=== PATIENT | male | born 1945 | race Caucasian/White ===

== ENCOUNTER 2025-06-02 13:22 | Outpatient (REF) | payer MEDICARE, OTHER, SELFPAY ==
[2025-06-02 18:33] LABS: Alanine Aminotransferase 38 U/L (0-40); Aspartate Amino Transferase 48 U/L (5-37); Estimated Glomerular Filt Rate > 60; Uric Acid 5.1 mg/dL (3.4-7.0)
--- OUTSIDE RECORDS SUMMARY | 2025-06-02 22:05 | XMS_ITS | Clinical Summary ---
Author Organization [address] [place] [address] [place] [phone] Phone Care Team Providers Care Bridge Attacher Name Role Phone Juani Mendoza MD Primary Care Provider [phone] Allergies Active Allergy Reactions Criticality Noted Date Comments Other 12/31/2016 Seasonal Allergies Simvastatin Diarrhea High 10/13/2013 collagenous colitis Medications allopurinoL (ZYLOPRIM) 100 mg tablet Take 1 tablet (100 mg total) by mouth 1 (one) time each day. Taken with 300 mg to equal 400 mg [facility] fills Meds Active allopurinoL (ZYLOPRIM) 300 mg tablet Take 1 tablet (300 mg total) by mouth 1 (one) time each day. Taken with 100 mg to equal 400 mg [facility] fills Meds 07/25/19 24 Active blood-glucose meter misc E11.9 To check glucose once daily 02/13/20 22 Active clotrimazole-beta methasone (LOTRISONE) 1-0.05 % cream Apply sparingly to external affected area 2 times daily for 7-10 days. 07/09/19 20 Active medical supply, miscellaneous (MISCELLANEOUS MEDICAL SUPPLY MIS) CPAP Historical (HISTORICAL CPAP) Inhale into the lungs. [employer]-pressure 6-8 Active glucose blood test strip E11.9 To check glucose once daily 02/13/20 22 Active lancets lancets To check sugars twice daily 06/06/20 23 Active nitroglycerin (NITROSTAT) 0.[address] 1 tablet (0.4 mg total) under the tongue every 5 (five) minutes if needed for chest pain. Brendan Molina Cloth Examiner Hand fills meds Active atorvastatin (LIPITOR) 40 mg tabletIndications :Atherosclerotic heart disease of [place] coronary artery without angina pectoris,Pure hypercholesterole gracie, unspecified TAKE 1 TABLET BY MOUTH EVERY DAY 90 tablet 3 05/25/20 24 Active multivit with minerals/lutein (MULTIVITAMIN 50 PLUS ORAL) Take 1 tablet by mouth 1 (one) time each day. 06/07/[address] (ENTOCORT EC) 3 mg 24 hr capsuleIndication s:Bruising Take 3 capsules (9 mg total) by mouth 1 (one) time each day in the morning. 270 capsule 3 09/15/19 25 Active nystatin-triamcin olone (MYCOLOG II) cream APPLY TO AFFECTED AREA TWICE A DAY 30 g 5 10/06/19 25 Active metoprolol succinate (TOPROL-XL) 25 mg 24 hr tabletIndications :Coronary artery disease of [place] artery of [place] heart with stable angina pectoris (CMS/HCC V24),Paroxysmal atrial fibrillation (CMS/HCC V24, CMS/HCC V28) Take 1 tablet (25 mg total) by mouth 1 (one) time each day. Do not crush or chew. 90 each 3 11/06/19 25 026 Active fluticasone propionate (FLONASE) 50 mcg/actuation nasal spray USE 1 SPRAY IN EACH NOSTRIL EVERY DAY 48 mL 1 11/17/19 25 Active folic acid (FOLVITE) 1 mg tablet TAKE 1 TABLET BY MOUTH EVERY DAY 90 tablet 12/29/19 25 Active apixaban (Eliquis) 5 mg tablet Take 1 tablet (5 mg total) by mouth every 12 (twelve) hours. 180 tablet 2 03/04/20 25 Active Active Problems Problem Noted Date Diagnosed Date Status post coronary artery bypass graft 025 Assessment & Plan (11/05/2024 11:38 AM EDT): Cardiac pacemaker in situ 11/05/2024 Assessment & Plan (11/05/2024 11:38 AM EDT): Secondary hypercoagulable state 11/05/2024 Assessment & Plan (11/05/2024 11:38 AM EDT): Orders: Basic metabolic panel; Future Peripheral vascular disease 11/05/2024 Assessment & Plan (11/05/2024 11:38 AM EDT): No recent claudication symptoms. He was encouraged to continue with his current activity level; we discussed that continued activity will help to develop collateral circulation. PVC's (premature ventricular contractions) 11/05 Assessment & Plan (11/05/2024 11:38 AM EDT): As above; will obtain metabolic panel today to evaluate for any underlying electrolyte derangement. Orders: Basic metabolic panel; Future Nonthrombocytopenic purpura 06/10/2024 Nontraumatic complete tear of right rotator cuff 05/12/2024 Vitamin B12 deficiency 07/25/2023 Intermittent claudication 01/17/2023 Overview (03/22/2024): Last Assessment & Plan: He will undergo a bilateral CATRINA with lower extremity arterial duplex at first available. He will continue statin therapy. Paroxysmal atrial fibrillation 10/28/2022 Assessment & Plan (11/05/2024 11:38 AM EDT): Minimal paroxysmal atrial fibrillation noted on most recent device check; he is typically asymptomatic of events. Heart rate was slightly irregular on auscultation today; ECG was updated and showed AV dual paced rhythm with occasional PVCs. We will continue to monitor his device for increased burden; continue metoprolol for rate control. He is anticoagulated with apixaban 5 mg twice daily for cardioembolic prophylaxis; we discussed the risks and benefits of continuing with anticoagulation and he wishes to continue with the current plan. He is on the appropriate dose for his age of less than 80 years, weight of greater than 60 kg, and assumed normal renal function; we are updating a basic metabolic panel today but this would not currently change his dosing should his creatinine to be greater than 1.5. He is aware to seek urgent medical attention for any uncontrolled bleeding, signs or symptoms of GI or other internal bleeding, or for any head injury. Orders: metoprolol succinate (TOPROL-XL) 25 mg 24 hr tablet; Take 1 tablet (25 mg total) by mouth 1 (one) time each day. Do not crush or chew. ECG 12 lead Atopic dermatitis 10/03/2022 Basal cell carcinoma (BCC) 06/19/2022 Allergic contact dermatitis 01/03/2022 Right bundle branch block 06/08/2021 Assessment & Plan (11/05/2024 11:38 AM EDT): Abnormal nuclear stress test 05/11/2021 Other chest pain 05/11/2021 Epigastric pain 04/25/2021 Disorder of pigmentation 01/11/2021 Sick sinus syndrome 11/01/2020 Overview (03/22/2024): Last Assessment & Plan: Status post Biotronik dual-chamber permanent pacemaker. Last remote download from December 2022 revealing 75% of battery longevity remaining. He is atrial paced 62% of the time and right ventricular paced 63% of the time. No arrhythmias were noted on this most recent download. We will continue current dose of metoprolol. We will continue to monitor remotely. Assessment & Plan (11/05/2024 11:38 AM EDT): Now status post pacemaker; AV paced on ECG today. Continue with in office and remote device checks as per device clinic protocol. Essential hypertension 07/03/2020 Overview (03/22/2024): Last Assessment & Plan: 130/76 in office today, well-controlled. Continue current regimen. Assessment & Plan (11/05/2024 11:38 AM EDT): Blood pressure is favorable on current antihypertensive regimen; continue metoprolol. We will obtain metabolic panel as he has not had 1 of these completed in some time. Orders: Basic metabolic panel; Future History of permanent cardiac pacemaker placement 06/09/2020 Overview (12/06/2024): 06/07/2020 for severe bradycardia. Last Assessment & Plan: Device checked today, feeling great s/p pacemaker Gout 06/29/2019 Phimosis 10/28/2018 Neoplasm of uncertain behavior of skin 8 Controlled type 2 diabetes m ellitus without complication, without long-term current use of insulin 09/04/2017 Obstructive sleep apnea 11/04/2016 Overview (03/22/2024): [facility] Home Polysomnogram: Date 10/29/2016; AHI 63, Unclassified apneas 0; Obstructive apneas 84; Central apneas 3; Mixed apneas 0; hypopneas 27; average oxygen saturation 84% (lowest 40% with saturations <88% for 5% or more of study). Reported as failed study #2 - diagnostic in-lab study recommended. [facility]ysomnogram: Date 12/18/2016; SE 77%; SM 77%; REM 19%; RDI 8 (AHI 6), worse in nonREM (RDI 9 - AHI 7), Central apneas 0; Obstructive apneas 21; Mixed apneas 0; hypopneas 20; RERAs 13; average oxygen saturation 96% (lowest 86% - without saturations <88% for 5% or more of study); PLMs 55. Assessment & Plan (11/05/2024 11:38 AM EDT): The patient reports continued faithful use of CPAP. Actinic keratosis 11/17/2013 Pneumonia 10/13/2013 Overview (12/06/2024): Pneumonia; 2005 Urinary tract infection 10/13/2013 Overview (12/06/2024): Urinary tract infection; post op infection and urinary obstuction was given Proscar for a short period of time Prostate cancer 04/23/2013 Overview (03/22/2024): See note 04/22/13, s/p prostectomy in [facility] 2014 Erectile dysfunction 06/09/2012 Overview (03/22/2024): Respond to PDE Bruising 06/09/2012 Collagenous colitis 08/21/2009 Overview (03/22/2024): When he was on simvastatin in the past he developed abdominal discomfort and was diagnosed with collagenous colitis. He is now on atorvastatin and feels fine. Colonoscopy, biopsies, upper endoscopy, biopsies, 08/03/09. Positive for collagenous colitis. Improvement with Pepto-Bismol treatment as of 08/24/2009. Failed Pepto, started Asacol with good response December,. rx'd with budesonide 07/2015 with good response. Assessment & Plan (09/08/2024 8:21 PM EDT): Orders: Ambulatory referral to Gastroenterology; Future Gastritis 08/03/2009 Overview (03/22/2024): Upper GI endoscopy plus biopsies 08/03/2009: No h. Pylori infection. Benign prostatic hyperplasia 04/18/2008 Enthesopathy of hip region 04/17/2007 Allergy 12/11/2005 Overview (03/22/2024): IMO update Restless leg syndrome 12/11/2005 Overview (03/22/2024): 12/18/2016 - Diagnostic Polysomnogram reported 55 PLMs per hour. Coronary artery disease of n ative artery of [place] heart with stable angina pectoris 06/19/2005 Overview (03/22/2024): CABG 2001 History of CABG Cardiac cath in May 2021. Distal left main 40%, LAD distal 95%, proximal LAD 90%, left circumflex 50%, RCA distal 50% lesion followed by a 60% lesion. Widely patent HERNANDEZ to the LAD. The most significant lesion was a 95% lesion in the mid subsection of the distal LAD but after the touchdown of the HERNANDEZ. Considering the atypical symptoms and no significant ischemia on stress test and his ability to continue to exercise at the gym medical management was advised. Reaching that LAD would require going down the HERNANDEZ. Last Assessment & Plan: His symptoms remain atypical. It is unclear what to make of his discomfort. I do not feel strongly that this is cardiac mediated given it is taking 30 minutes for sublingual nitroglycerin to work. In any event I do not want to jump to any angiogram. I will start with a cardiac PET/CT stress test. If this shows a significant area of ischemia as well as abnormal blood flow then I would consider repeating an angiogram. Otherwise I would continue to treat him medically. He is not on aspirin for unclear reasons. He should be on this given coronary disease and atrial fibrillation. He will start aspirin 81 mg daily. He will otherwise continue Imdur, metoprolol, and high intensity statin therapy. We will await cardiac PET/CT stress test results. Assessment & Plan (11/05/2024 11:38 AM EDT): The patient remains quite active on a regular basis and offers no symptoms concerning for underlying ischemia. Due to bruising on his forearms, likely senile purpura, he stopped taking his daily aspirin; I have asked him to restart this and he is amenable to doing so. Additionally, he will continue with atorvastatin and metoprolol. We discussed risk reduction through lifestyle modifications including healthy diet, routine exercise, and weight management. The patient was advised to seek emergent medical attention by calling 911 if they were to develop severe dyspnea, chest pain that did not resolve with rest, or if they were to faint. Orders: metoprolol succinate (TOPROL-XL) 25 mg 24 hr tablet; Take 1 tablet (25 mg total) by mouth 1 (one) time each day. Do not crush or chew. Lipid panel; Future Pure hypercholesterolemia 06/19/2005 Overview (03/22/2024): Lipids well controlled. On Lipitor 40. Last Assessment & Plan: Last lipid panel from March 2022. Total cholesterol 106, triglycerides 56, HDL 43, LDL 52. Continue high intensity statin therapy. Goal LDL should be less than 70 given coronary disease. Assessment & Plan (11/05/2024 11:38 AM EDT): The patient's most recent lipid panel was completed on 07/18/2023 revealing an LDL of 46. LDL goal for this patient who has a history of coronary artery disease as well as diabetes is less than 55. We will update a lipid panel and continue to readdress this as indicated; in the interim, continue atorvastatin 40 mg. Orders: Lipid panel; Future Encounters Date Type Department Care Team Description 04/21/2025 Results Follow-Up [facility] - [facility] [address] [facility] [address] [place] [address] Carrie Caldwell NP 04/18/2025 9:15 AM EDT Ancillary Procedure [facility] Cardiology [facility] [address] [place] [address] Bilateral carotid artery stenosis 04/14/2025 12:30 PM EDT Ancillary Procedure [facility] [address] [facility] [address] [place] [address] 04/07/2025 Results Follow-Up [facility]ocr[facility] - [place] [address] [place] [address] Bonny Flores PA 04/05/2025 9:30 AM EDT Office Visit Endocrinology - [place] [address] [place] [phone] Bonny Flores PA Type 2 diabetes mellitus with other specified complication, without long-term current use of insulin ([facility] V24, [facility] V28) (Primary Dx); Essential hypertension; Pure hypercholesterolemia 03/04/2025 Telephone [facility] [address] [place] [address] Carrie Caldwell NP from Last 3 Months Immunizations Immunization Administration Dates Next Due H1N1 Inj Preservative Free 05/31/2009 Influenza Quadravalent, 0.5m l (Fluad) 65yo and older 03/07/2023 Influenza Quadravalent, MDCK , 0.5ml, preservative free (Flucelvax) 6mo and older 03/01/2019 Influenza trivalent, 0.5mL ( Fluad) 65yo and older 03/30/2025,03/16/2024 Influenza trivalent, 0.5mL ( Fluzone High-dose) 65yo and older 03/27/2022,03/20/2021,03/13/2020,03/13 Influenza trivalent, with pr eservative (Fluzone; Afluria) 6mo and older 04/22/2013,04/16/2012,05/29/2011,05/23,05/31/2009,04/15/2008,04/11/2007 ,04/23/2005 Influenza, Unspecified 02/25/2017,03/13/2016, Moderna (age 6mo & older) Bi valent, COVID-19, 0.5 mL or 0.25 mL dosage 05/01/2022 Moderna SARS-CoV-2 COVID-19, mRNA, LNP-S, preservative free 05/01/2022 Pneumococcal conjugate 20 va lent (Prevnar 20, PCV 20) 2mo and older 12/31/2024 Pneumococcal polysaccharide 23 valent (Pneumovax 23) 2yo and older 11/26/2013 RSV, bivalent, protein subun it RSVpreF, 0.5mL, Preservative Free (ABRYSVO) 50yo and older or 32 through 36 wks of 03/30/2025 Tdap Tetanus diptheria acell ular pertussis (Boostrix; Adacel) 7yo and older 12/31/2024,11/03/2007 Zoster Live 10/22/2011 Zoster recombinant (Shingrix ) 19yo and older 03/11/2025 Surgical History Surgery Date Site/Laterality Comments COLONOSCOPY 10/18/2004 PROCEDURE: HISTORICAL COLONOSCOPY; COMMENT: Normal COLONOSCOPY 08/03/2009 PROCEDURE: HISTORICAL COLONOSCOPY; COMMENT: evaluation of chronic diarrhea: Collagenous colitis. PROSTATECTOMY 2014 PROCEDURE: PROSTATECTOMY; COMMENT: [place] UPPER GASTROINTESTINAL ENDOSCOPY 08/03/2009 PROCEDURE: GA UPPER GI ENDOSCOPY PERFORMED; COMMENT: gastritis: No H. pylori infection PACEMAKER IMPLANT 06/07/2020 PROCEDURE: HISTORICAL PACEMAKER; COMMENT: For treatment of severe bradycardia. 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 Historical Medical DX 04/18/2008 DX:BPH Gastritis 08/03/2009 DX:Gastritis Diarrhea of presumed infecti ous origin 08/03/2009 DX:Diarrhea of presumed infe ctious origin Collagenous colitis 08/21/2009 DX:Collageno us colitis Prostate cancer ([facility] V24 , [facility] V28) 04/23/2013 DX:Prostate cancer ([facility]); CO MMENT: See note 04/22/13 Phimosis 10/28/2018 DX:Phimosis History of permanent cardiac pacemaker placement 06/09/2020 DX:History of permanent card iac pacemaker placement; COMMENT: 06/07/2020 for severe bradycardia. Family History Medical History Relation Name Comments Stroke Aunt Heart attack Brother Fer at 56 Cirrhosis Father had some type o f abdominal cancer Arthritis Mother Hypertension Mother Other: carotid stenosis Mother Heart attack Uncle age 60' Colon cancer Neg Hx Relation Name Status Comments Aunt Brother Fer Father (Age 49) Mother (Age 91) Uncle Social History Tobacco Use Types Packs/Day Years Used Date Smoking Tobacco: Former Cigarettes 1 Q uit: 06/23/1987 Smokeless Tobacco: Never Alcohol Use Standard Drinks/Week Comments Yes 4.2 (1 standard drink = 0.6 oz p ure alcohol) Sex and Gender Information Value Date Recorded Sex Assigned at Not on file Legal Sex Male 9:05 PM EST Gender Identity Not on file Sexual Orientation Not on file Last Filed Vital Signs Vital Sign Reading Time Taken Comments Blood Pressure 120/72 04/05/2025 9:26 AM EDT Pulse 63 04/05/2025 9:26 AM EDT Temperature 36.4 C (97.6 F) 12/06/2024 9:44 AM EDT Respiratory Rate 14 04/05/2025 9:26 AM EDT Oxygen Saturation 98% 12/06/2024 9:44 AM EDT Inhaled Oxygen Concentration - - Weight 82.6 kg (182 lb) 04/05/2025 9:26 AM EDT Height 177.8 cm (5' 10 ) 04/05/2025 9:26 AM EDT Body Mass Index 26.11 04/05/2025 9:26 AM EDT Plan of Treatment Upcoming Encounters Date Type Department Care Team (Late st Contact Info) Description 06/07/2025 9:15 AM EST Office Visit Pulmonology - [place] [address] [facility] [address] [place] [address] Darrel Mendoza MD [address] [place] [address] 06/30/2025 9:30 AM EST Ancillary Procedure [facility] - [facility] [address] [facility] [address] [place] [phone] 07/15/2025 9:50 AM EST Office Visit [facility] - [facility] [address] [facility] [address] [place] [phone] Brendan Molina MD [address] [place] [address] [address] [place] [phone] 09/12/2025 9:30 AM EDT Office Visit Endocrinology - [place] [address] [place] [address] Bonny Flores PA [address] [place] [address] Health Maintenance Due Date Last Done Comments Diabetes: Annual Foot Exam 11/28/1955 Diabetes: Annual Retina Eye Exam 11/28/1957 Colorectal Cancer Screening: Stool Based Tests (FOBT/FIT) 06/01/2022 Medicare Annual Wellness Visit 06/01/2022 Social Influencers of Health Screening 06/01/2022 Falls Risk Assessment 06/02/2024 06/02/2023 Depression Screening 06/23/2024 06/02/2023 COVID-19 Vaccine ( season) 2025 05/01/2022, 05/01/2022, 05/10/2021, Additional history exists Zoster Vaccines (2 of 2) 05/06/2025 03/11/2025, 0506/2011 Diabetes: Blood Sugar Control Test (HGBA1C) 10/05/2025 04/06/2025, 09/08/2024, 04/02/2024, Additional history exists Diabetes: Annual GFR (Glomerular Filtration Rate) 11/09/2025 11/09/2024, 05/29/2023, 05/29/2023 Hypertension/CHF/CAD Annual BMP Blood Test 11/09/2025 11/09/2024, 05/29/2023, 05/29/2023 Diabetes: Annual Urine Albumin-Creatinine Ratio (uACR) 04/06/2026 04/06/2025, 04/21/2023 Cholesterol Screening (Lipid Panel) 04/06/2030 04/06/2025, 11/09/2024, 07/18/2023, Additional history exists DTaP,Tdap,and Td Vaccines (3 - Td or Tdap) 12/31/2034 12/31/2024, 11/03/2007 Hepatitis C Screening Completed 10/19/2012 Colorectal Cancer Screening: Colonoscopy Discontinued 02/27/2022 Pneumococcal Vaccine: 50+ Years Completed 12/31/2024, 11/26/2013 Influenza Vaccine Completed 03/30/2025, , 03/07/2023, Additional history exists RSV Immunization Adult Patients Completed 03/30/2025 HIB Vaccines Aged Out No longer eligi ble based on patient's age to complete this topic HPV Vaccines Aged Out No longer eligi ble based on patient's age to complete this topic Hepatitis A Vaccines Aged Out No long er eligible based on patient's age to complete this topic Hepatitis B Vaccines Aged Out No long er eligible based on patient's age to complete this topic IPV Vaccines Aged Out No longer eligi ble based on patient's age to complete this topic MMR Vaccines Aged Out No longer eligi ble based on patient's age to complete this topic Meningococcal ACWY Vaccine Aged Out N o longer eligible based on patient's age to complete this topic Meningococcal B Vaccine Aged Out No l onger eligible based on patient's age to complete this topic RSV Immunization Patients Under 20 months Aged Out No longer eligible based on patient's age to complete this topic Varicella Vaccines Aged Out No longer eligible based on patient's age to complete this topic Medical Devices Implanted Type Area Caretaker Grounds Device Identifier Shelf Expiration Date Model / Serial / Lot GabrielLawrence Yin 8 Josie [id number] Implanted:05/23 (Quantity not on file) Cardiac Pacemaker [employer] EDORA 8 JOSIE / [id number] / Procedures Procedure Name Priority Date/Time Associated Diagnosis Comments VAS US DUPLEX CAROTID BILATERAL Routine 04/18/2025 9:27 AM EDT Bilateral carotid artery stenosis CARDIAC DEVICE CHECK- REMOTE- MURJ Routine 04/14/2025 12:25 PM EDT HEMOGLOBIN A1C Routine 04/06/2025 9:22 AM EDT Controlled type 2 diabetes mellitus without complication, without long-term current use of insulin (CMS/HCC V24, CMS/HCC V28) LIPID PANEL WITH REFLEX TO DIRECT LDL Routine 04/06/2025 9:22 AM EDT Controlled type 2 diabetes mellitus without complication, without long-term current use of insulin (CMS/HCC V24, CMS/HCC V28) MICROALBUMIN CREATININE URINE RATIO Routine 04/06/2025 9:22 AM EDT Controlled type 2 diabetes mellitus without complication, without long-term current use of insulin (CMS/HCC V24, CMS/HCC V28) BASIC METABOLIC PANEL Routine 11/09/2024 8:25 AM EDT Essential hypertension Secondary hypercoagulable state (CMS/HCC V24) PVC's (premature ventricular contractions) DEPRESSION SCREENING Routine 06/02/2023 FALLS RISK ASSESSMENT Routine 06/02/2023 HM COLONOSCOPY Routine 02/27/2022 HEPATITIS C SCREENING Routine 10/19/2012 from Last 3 Months or Most Recently Relevant to Health Maintenance Results * Vascular US duplex carotid bilateral (04/18/2025 9:27 AM EDT) Left CCA dist ruiz 13 cm/s CV VAS LAB Left CCA dist sys 37 cm/s CV VAS LAB LEFT COMMON CAROTID ARTERY MID D 21 cm/s CV VAS LAB LEFT COMMON CAROTID ARTERY MID S 63 cm/s CV VAS LAB Left CCA prox ruiz 30 cm/s CV VAS LAB Left CCA prox sys 106 cm/s CV VAS LAB LEFT EXTERNAL CAROTID ARTERY D 12 cm/s CV VAS LAB Left ECA sys 65 cm/s CV VAS LAB Left ICA/CCA sys 1.50 CV VAS LAB Left ICA dist ruiz 22 cm/s CV VAS LAB Left ICA dist sys 55 cm/s CV VAS LAB Left ICA mid ruiz 16 cm/s CV VAS LAB Left ICA mid sys 44 cm/s CV VAS LAB Left ICA prox ruiz 10 cm/s CV VAS LAB Left ICA prox sys 35 cm/s CV VAS LAB Left vertebral sys 33 cm/s CV VAS LAB Right CCA dist ruiz 16 cm/s CV VAS LAB Right cca dist sys 47 cm/s CV VAS LAB RIGHT COMMON CAROTID ARTERY MID D 17 cm/s CV VAS LAB RIGHT COMMON CAROTID ARTERY MID S 53 cm/s CV VAS LAB Right CCA prox ruiz 17 cm/s CV VAS LAB Right CCA prox sys 73 cm/s CV VAS LAB RIGHT EXTERNAL CAROTID ARTERY D 13 cm/s CV VAS LAB Right eca sys 52 cm/s CV VAS LAB Right ICA/CCA sys 1.00 CV VAS LAB Right ICA dist ruiz 22 cm/s CV VAS LAB Right ICA dist sys 49 cm/s CV VAS LAB Right ICA mid ruiz 20 cm/s CV VAS LAB Right ICA mid sys 48 cm/s CV VAS LAB Right ICA prox ruiz 13 cm/s CV VAS LAB Right ICA prox sys 47 cm/s CV VAS LAB Right vertebral sys 39 cm/s CV VAS LAB Left Prox Subclavian PSV 108 cm/s CV VAS LAB Right Prox Subclavian PSV 108 cm/s CV VAS LAB Anatomical Region Laterality Modality Vascular, Abdomen Ultrasound Narrative 04/19/2025 6:27 PM EDT Right ICA: There is mild heterogeneous plaque. Left ICA: There is mild heterogeneous plaque. RIGHT. 1. There is atherosclerotic plaque in the carotid system as noted below. 2. There is less than 50% stenosis in the internal carotid artery based on Doppler velocity. 3. The subclavian artery has normal Doppler flow pattern. 4. Vertebral artery has normal antegrade flow. LEFT. 1. There is atherosclerotic plaque in the carotid system as noted below. 2. There is less than 50% stenosis in the internal carotid artery based on Doppler velocity. 3. The subclavian artery has normal Doppler flow pattern. 4. Vertebral artery has normal antegrade flow. Right Carotid The CCA has minimal heterogeneous plaque. The ICA has mild heterogeneous plaque. The ECA has mild heterogeneous plaque. 125/69 Vertebral flow is antegrade. Left Carotid The CCA has minimal heterogeneous plaque. The ICA has mild heterogeneous plaque. The ECA has mild heterogeneous plaque. 131/76 Vertebral flow is antegrade. Carrie Caldwell NP CV VASCULAR PROCEDURE S Final Result * Cardiac device check - Remote- MURJ (04/14/2025 12:25 PM EDT) Date Time Interrogation Session [id number] CV DEVICE CHECK Type Interrogation Session RemoteScheduled CV DEVICE CHECK Implantable Pulse Generator Caretaker Grounds BIO CV DEVICE CHECK Implantable Pulse Generator Type IPG CV DEVICE CHECK Implantable Pulse Generator Model Edora 8 DR-T CV DEVICE CHECK Implantable Pulse Generator Serial Number [id number] CV DEVICE CHECK Implantable Pulse Generator Implant Date [id number] CV DEVICE CHECK Battery Remaining Percentage 60.00 CV DEVICE CHECK Battery Status Middle of Service CV DEVICE CHECK Avni Statistic RA Percent Paced 47.00 CV DEVICE CHECK Avni Statistic RV Percent Paced 67.00 CV DEVICE CHECK Atrial Tachy Statistic AT/AF [place] Percent 0.00 CV DEVICE CHECK Lead Channel Sensing Intrinsic Amplitude 5.100 CV DEVICE CHECK Lead Channel Impedance Value 468 CV DEVICE CHECK Lead Channel RA Pacing Threshold Date 2025-04-06 CV DEVICE CHECK Lead Channel Setting Pacing Amplitude 1.600 CV DEVICE CHECK Lead Channel Setting Pacing Pulse Width 0.4 CV DEVICE CHECK Lead Channel Sensing Intrinsic Amplitude 8.100 CV DEVICE CHECK Lead Channel Impedance Value 585 CV DEVICE CHECK Lead Channel Pacing Threshold Amplitude 1.500 CV DEVICE CHECK Lead Channel Pacing Threshold Pulse Width 0.4 CV DEVICE CHECK Lead Channel RV Pacing Threshold Date 2025-04-06 CV DEVICE CHECK Lead Channel Setting Pacing Amplitude 2.000 CV DEVICE CHECK Lead Channel Setting Pacing Pulse Width 0.4 CV DEVICE CHECK Avni Setting Mode (NBG Code) DDD CV DEVICE CHECK Avni Setting Lower Rate Limit 60 CV DEVICE CHECK Avni Setting AT Mode Switch Rate 160 CV DEVICE CHECK Avni Setting Maximum Tracking Rate 130 CV DEVICE CHECK Avni Setting Maximum Sensor Rate 120 CV DEVICE CHECK Avni Setting PAV Delay 300 CV DEVICE CHECK Avni Setting JARVIS Delay 280 CV DEVICE CHECK Date of Service 2025-04-14 CV DEVICE CHECK Anatomical Region Laterality Modality Device Interroga tion 04/06/2025 12:2 1 AM EDT Impressions 04/14/2025 7:47 AM EDT Normal Remote: No Events * Normal Device Function * Alerts or events: None * Battery: Battery is at 60%, * Sensing, impedance and thresholds reviewed * Programmed parameters reviewed * Presenting rhythm reviewed * Heart Rate Histograms reviewed * No significant changes noted Narrative Procedure Note Abhijit Miranda MD - 04/14/2025 IMPRESSION: Normal Remote: No Events * Normal Device Function * Alerts or events: None * Battery: Battery is at 60%, * Sensing, impedance and thresholds reviewed * Programmed parameters reviewed * Presenting rhythm reviewed * Heart Rate Histograms reviewed * No significant changes noted us Abhijit Miranda MD CV IMPLANTABLE CARDIAC DEVICE PROCEDURES Final Result * Lipid panel with reflex to direct LDL (04/06/2025 9:22 AM EDT) [facility] Cholesterol 109 0 - 200 mg/dL LAB CHEMISTRY METHOD 04/06/2025 1:14 PM EDT [facility] Triglycerides 77 0 - 150 mg/dL LAB [facility] HDL 53 >=40 mg/dL LAB CHEMISTRY METHOD 04/06/2025 1:14 PM [facility] LDL Calculated 41 0 - 100 mg/dL LAB CHEMISTRY METHOD 04/06/2025 1:14 PM [facility] Comment:Estimated LDL Calcul ated using equation: Total cholesterol - HDL cholesterol - (Triglycerides/5) VLDL Cholesterol Danielito 15.4 mg/dL LAB CHEMISTRY METHOD [facility] Non HDL Chol. (LDL+VLDL) 56 <145 mg/dL LAB CHEMISTRY METHOD 04/06/2025 1:14 PM [facility] Chol/HDL Ratio 2.1 0.0 - 4.4 LAB CHEMISTRY METHOD 04/06/2025 1:14 PM [facility] Blood Venous blood specimen / Unknown Venipuncture / Unknown 04/06/2025 9:22 AM EDT 04/06/2025 9:22 AM EDT us Bonny RICHMOND LAB BLOOD ORDERABLES Final Resul t Performing Organization Address [facility]/ZIP Co de Phone Number [facility] [address] [place] [address], [place] [phone] * Microalbumin creatinine urine ratio (04/06/2025 9:22 AM EDT) Creatinine, Urine 38.0 mg/dL LAB CHEMISTRY METHOD 04/06/2025 1:35 PM EDT [facility] Microalb, Ur 7.1 0.0 - 29.0 mg/L LAB CHEMISTRY METHOD 04/06/2025 1:35 PM EDT [facility] Microalb/Creat Ratio 19 <30 mg/g creat LAB CHEMISTRY METHOD 04/06/2025 1:35 PM EDT [facility] Urine Urine specimen obtained by clean catch procedure / Unknown Non-blood Collection / Unknown 04/06/2025 9:22 AM EDT 04/06/2025 9:22 AM EDT us Bonny RICHMOND LAB URINE ORDERABLES Final Resul t Performing Organization Address [facility] de Phone Number [facility] [address] [place] [address], [place] [phone] * (ABNORMAL) Hemoglobin A1c (04/06/2025 9:22 AM EDT) Hemoglobin A1C 7.0(H) <6.5 % LAB CHEMISTRY METHOD 04/06/2025 1:05 PM EDT [facility] Mean Bld Glu Estim. 154 mg/dL LAB CHEMISTRY METHOD 04/06/2025 1:05 PM EDT [facility] Blood Venous blood specimen / Unknown Venipuncture / Unknown 04/06/2025 9:22 AM EDT 04/06/2025 9:22 AM EDT us Bonny RICHMOND LAB BLOOD ORDERABLES Final Resul t [facility] ([facility] [address] [place] [address], * (ABNORMAL) Basic metabolic panel (11/09/2024 8:25 AM EDT) Pathologist [facility] Glucose 118(H) 70 - 99 mg/dL [facility] Blood Urea Nitrogen (BUN) 14 8 - 27 mg/dL [facility] Creatinine 1.00 0.76 - 1.27 mg/dL [facility] 1 eGFR 78 >59 mL/min/1.7 3 [facility] BUN/Creatinine Ratio 14 10 - 24 [facility] 1 Sodium 140 134 - 144 mmol/L [facility] Potassium 4.1 3.5 - 5.2 mmol/L [facility] 1 Chloride 100 96 - 106 mmol/L [facility] 1 Carbon Dioxide 23 20 - 29 mmol/L [facility] 1 Calcium 9.7 8.6 - 10.2 mg/dL [facility] 1 Blood Venous blood specimen / Unknown 11/09/2024 8:25 AM EDT 11/09/2024 Narrative [facility] 1 - 11/10/2024 4:06 AM EDT Performed at: [facility] [id number] [facility] Consultant: Yoli Holbrook MD, Phone: [phone] Carrie Caldwell NP LAB BLOOD ORDERABLES Final Result [facility] 1 * Falls Risk Assessment (06/02/2023) [facility] Falls Risk Assessment Abstracted Historical Provider HEALTH MAINTENANCE Final Result * Depression Screening (06/02/2023) Pathologist [facility] Depression Screening Abstracted Historical Provider HEALTH MAINTENANCE Final Result * Colonoscopy (02/27/2022) Pathologist [facility] Colonoscopy No Interpretation , Abstracted Anatomical Region Laterality Modality Other Historical Provider HEALTH MAINTENANCE Final Result * Hepatitis C Screening (10/19/2012) Hepatitis C Screening Abstracted Historical Provider HEALTH MAINTENANCE Final Result from Last 3 Months or Most Recently Relevant to Health Maintenance Insurance MEDICARE [facility] 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
--- OUTSIDE RECORDS SUMMARY | 2025-06-02 22:05 | XMS_ITS | Data Portability ---
Author Organization [facility], [facility] Address [address] [place] [address] Care Team Providers Care Road Mixer Operator Name Role Phone ANURAG JAIR Referring Provider FELICITY ALLISON Primary Care Provider [phone] Assessment Encounter Date Assessment Date Assessment LastModified by Organization Details LastModified Time 09/21/2024 09/21/2024 Assessment: Pt was able to progress strengthening exercises on the L shoulder without increased pain. The goal is to prevent having RC surgery on the L and return to full activity level without restrictions this summer. He did need to modify some weight for the L arm during strengthening but overall did well. Plan: Continue Poc. 1x week to progress strengthening through the end september. Not available 09/21/2024 17:43:03 09/29/2024 09/29/2024 Assessment: Pt able to lift 8# with B UE without compensation and no increase in pain. He is able to progress cuff strengthening but still requires some tactile and verbal cues to help complete cuff exercises with good form. Plan: Continue Poc. 1x week to progress strengthening through the end of September. Not available 09/29/2024 15:56:19 10/07/2024 10/07/2024 Assessment: Pt was able to progress strength exercises again with good form and less vc's. He had no c/o pain and was even able to progress exercises on his L shoulder without increased symptoms. Plan: Continue Poc. 1x week to progress strengthening through the end september. Not available 10/07/2024 17:20:30 10/13/2024 10/13/2024 Assessment: Pt continues to progress ther ex without increase in pain. He has good form and requires minimal cueing. The goal is to transition to an HEP next visit. Plan: Continue Poc. 1x week to progress strengthening through the end of September. Not available 10/13/2024 08:36:42 10/18/2024 10/18/2024 Assessment: Pt is I with HEP and met all goals in therapy. He did really well with the course of therapy and understands recovery is up to and after a full year. He agrees to keep up with HEP and gym program. Will f/u prn. Plan: D/C to HEP Not available 10/18/2024 09:16:03 Plan of Treatment Reminders Order Date Submit Date Provider Last Modified By Organization Details Last Modified Time Details Appointments None record ed. Lab None record ed. Referral None record ed. Procedures None record ed. Surgeries None record ed. Imaging None record ed. Medication Orders None record ed. Patient TargetsNo targets recorded. Patient InstructionsNo instructions recorded. Reason for Referral None Reported. 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 Procedures Surgical History Date Name Laterality Status Provider Name and Address Organization Details Recorded Time 5 65126 Therapeutic Exercise (1:1) completed Colten Andrews DPT [address], [place], [address], [facility] 10/18/2024 08:38:11 5 18527 Therapeutic Exercise (1:1) completed Colten Andrews DPT [address], [place], [address], [facility] 10/13/2024 08:05:05 5 67622 Therapeutic Exercise (1:1) completed Colten Catjakis, DPT [address], [place], [address], [facility] 10/07/2024 16:30:38 5 73244 Therapeutic Exercise (1:1) completed Colten Andrews DPT [address], [place], [address], [facility] 09/29/2024 15:55:27 5 91529 Therapeutic Exercise (1:1) completed Colten Andrews DPT [address], [place], [address], [facility] 09/21/2024 17:33:24 5 92428 Therapeutic Exercise (1:1) completed Colten Andrews DPT [address], [place], [address], [facility] 09/16/2024 12:05:57 5 73312 Therapeutic Exercise (1:1) completed Colten Andrews DPT [address], [place], [address], [facility] 09/09/2024 16:07:40 5 42935 Therapeutic Exercise (1:1) completed Colten Andrews DPT [address], [place], [address], [facility] 09/08/2024 11:02:04 5 28017 Therapeutic Exercise (1:1) completed Martín Masterson PTA [address], [place], [address], [facility] 09/03/2024 11:44:32 5 30074 Therapeutic Exercise (1:1) completed Colten Andrews DPT [address], [place], [address], [facility] 08/31/2024 11:58:09 5 87365 Therapeutic Exercise (1:1) completed Colten Andrews DPT [address], [place], [address], [facility] 07/29/2024 10:44:23 5 99167 Therapeutic Exercise (1:1) completed Colten Andrews DPT [address], [place], [address], [facility] 07/26/2024 10:08:28 5 87908 Therapeutic Exercise (1:1) completed Martín Masterson PTA [address], [place], [address], [facility] 07/22/2024 11:28:35 5 38174 Therapeutic Exercise (1:1) completed Colten Andrews DPT [address], [place], [address], [facility] 07/19/2024 11:41:03 5 28047: Manual therapy completed Colten Andrews DPT [address], [place], [address], [facility] 07/19/2024 08:12:25 5 71764 Therapeutic Exercise (1:1) completed Colten Andrews DPT [address], [place], [address], [facility] 07/15/2024 11:55:08 5 82851: Manual therapy completed Colten Andrews DPT [address], [place], [address], [facility] 07/15/2024 11:06:20 5 29895 Therapeutic Exercise (1:1) completed Colten Andrews DPT [address], [place], [address], [facility] 07/12/2024 08:13:56 5 32702: Manual therapy completed CADY VelasquezT [address], [place], [address], [facility] 07/12/2024 10:45:37 5 19209 Therapeutic Exercise (1:1) completed CADY VelasquezT [address], [place], [address], [facility] 07/09/2024 10:34:49 5 37792: Manual therapy completed CADY VelasquezT [address], [place], [address], [facility] 07/09/2024 09:34:25 5 98415 Therapeutic Exercise (1:1) completed CADY VelasquezT [address], [place], [address], [facility] 07/07/2024 08:32:02 5 82887: Manual therapy completed CADY VelasquezT [address], [place], [address], [facility] 07/07/2024 08:32:02 5 31388 Therapeutic Exercise (1:1) completed Martín Masterson PTA [address], [place], [address], [facility] 07/02/2024 11:25:54 5 99249: Manual therapy completed Martín Masterson PTA [address], [place], [address], [facility] 07/02/2024 16:14:58 5 16675 Therapeutic Exercise (1:1) completed CADY VelasquezT [address], [place], [address], [facility] 06/30/2024 09:35:53 5 28437: Manual therapy completed Colten Andrews, DPT [address], [place], [address], [facility] 06/28/2024 12:59:12 5 29910 Therapeutic Exercise (1:1) completed Colten Andrews, DPT [address], [place], [address], [facility] 06/24/2024 11:44:05 5 52201: Manual therapy completed Colten Andrews, DPT [address], [place], [address], [facility] 06/24/2024 11:43:52 5 99634 Therapeutic Exercise (1:1) cancelled Colten Andrews, DPT [address], [place], [address], [facility] 06/22/2024 08:52:38 5 07930: Manual therapy cancelled Colten Andrews, DPT [address], [place], [address], [facility] 06/22/2024 08:52:39 4 61005 Therapeutic Exercise (1:1) completed Martín Masterson PTA [address], [place], [address], [facility] 06/17/2024 08:32:50 4 05266: Manual therapy completed Martín Masterson PTA [address], [place], [address], [facility] 06/17/2024 08:32:50 4 89776 Therapeutic Exercise (1:1) completed Martín Masterson PTA [address], [place], [address], [facility] 06/15/2024 09:36:22 4 02602: Manual therapy completed Martín Masterson, SENIOR WINDOWS ENGINEER [address], [place], [address], [facility] 06/15/2024 09:32:20 4 76799 Therapeutic Exercise (1:1) completed Martín Masterson, SENIOR WINDOWS ENGINEER [address], [place], [address], [facility] 06/09/2024 13:18:35 4 67080: Manual therapy completed Martín Masterson SENIOR WINDOWS ENGINEER [address], [place], [address], [facility] 06/09/2024 13:18:35 4 83281 Therapeutic Exercise (1:1) completed Martín Masterson SENIOR WINDOWS ENGINEER [address], [place], [address], [facility] 06/07/2024 12:55:33 4 21202: Manual therapy completed Martín Masterson SENIOR WINDOWS ENGINEER [address], [place], [address], [facility] 06/07/2024 12:55:33 4 14582 Therapeutic Exercise (1:1) completed Martín Masterson PTA [address], [place], [address], [facility] 06/02/2024 12:56:37 4 99304: Manual therapy completed Martín Masterson SENIOR WINDOWS ENGINEER [address], [place], [address], [facility] 06/02/2024 12:56:37 4 29729 Therapeutic Exercise (1:1) completed Martín Masterson SENIOR WINDOWS ENGINEER [address], [place], [address], [facility] 05/31/2024 17:57:29 4 04283: Manual therapy completed Martín Masterson, SENIOR WINDOWS ENGINEER [address], [place], [address], [facility] 05/31/2024 17:57:29 4 43447 Therapeutic Exercise (1:1) completed Martín Masterson PTA [address], [place], [address], [facility] 05/25/2024 10:15:06 4 94185: Manual therapy completed Martín Masterson PTA [address], [place], [address], [facility] 05/25/2024 10:15:11 4 33282 Therapeutic Exercise (1:1) completed CADY VelasquezT [address], [place], [address], [facility] 05/12/2024 09:47:05 4 97457: Low complexity PT Eval completed Colten Andrews DPT [address], [place], [address], [facility] 05/12/2024 09:47:22 4 G8417 BMI Above Upper Parameters, F/U Documented completed Colten Andrews DPT [address], [place], [address], [facility] 05/12/2024 09:47:11 4 G8427 Current Medication Documented completed Colten Andrews DPT [address], [place], [address], [facility] 05/12/2024 09:47:17 Imaging Results None recorded. Procedure Notes None recorded. Medical Equipment None Reported. Allergies No known drug allergies Medications Name Sig Start Date Stop Date Status Note LastModified by Organization Details LastModified Time atorvastati n 40 mg tablet TAKE 1 TABLET BY MOUTH EVERY DAY active Not Available Not Available No t Available desonide 0.05 % topical cream active Not Available Not Available Not Available fexofenadin e 60 mg tablet TAKE 1 TABLET BY MOUTH EVERY DAY active Not Available Not Available No t Available isosorbide mononitrate ER 30 mg tablet,exte nded release 24 hr TAKE 1 TABLET BY MOUTH EVERY DAY 04/30 completed Not Available Not Available Not Available fluorouraci l 5 % topical cream APPLY ONE DAY PER WEEK AM & PM TO SUN DAMAGED AREAS. ( I.E. FRIDAY AM/PM AND REPEAT WEEKLY) active Not Available Not Available No t Available allopurinol 100 mg tablet TAKE 1 TABLET BY MOUTH EVERY DAY (DAILY DOSE =400MG) active Not Available Not Available No t Available tramadol 50 mg tablet TAKE 1 TABLET BY MOUTH EVERY 6 HOURS NEEDED FOR 7 DAYS, FOR PAIN. 2024 active Not Available Not Available Not Avai artur OneTouch Ultra Test strips CHECK SUGARS TWICE DAILY E11.9 05/12 completed Not Available Not Available Not Available nystatin-tr iamcinolone 100,000 unit/g-0.1 % topical cream APPLY TO AFFECTED AREA TWICE A DAY active Not Available Not Available No t Available folic acid 1 mg tablet TAKE 1 TABLET BY MOUTH EVERY DAY active Not Available Not Available No t Available allopurinol 300 mg tablet TAKE 1 TABLET DAILY. TOTAL ALLOPURIN OL DOSE 400MG DAILY. active Not Available Not Available No t Available metoprolol succinate ER 25 mg tablet,exte nded release 24 hr TAKE 1 TABLET BY MOUTH EVERY DAY active Not Available Not Available No t Available budesonide DR - ER 3 mg capsule,del ayed,extend ed release TAKE 3 CAPSULES (9 MG TOTAL) BY MOUTH EVERY DAY IN THE MORNING active Not Available Not Available No t Available methylpredn isolone 4 mg tablets in a dose pack TAKE 6 TABLETS ON DAY 1 DIRECTED ON PACKAGE AND DECREASE BY 1 TAB EACH DAY FOR A TOTAL OF 6 DAYS 04/30 completed Not Available Not Available Not Available fluticasone propionate 50 mcg/actuati on nasal spray,suspe nsion USE 1 SPRAY IN EACH NOSTRIL EVERY DAY active Not Available Not Available No t Available oxycodone 5 mg tablet Take 1 tablet every 4-6 hours by oral route as needed for 7 days, for postopera tive pain. 05/12 completed Not Available Not Available Not Available Eliquis 5 mg tablet TAKE 1 TABLET BY MOUTH EVERY 12 HOURS active Not Available Not Available No t Available OneTouch Delica Plus Lancet 33 gauge TO CHECK SUGARS TWICE DAILY 05/12 completed Not Available Not Available Not Available OneTouch UltraSoft 2 Lancet 30 gauge TO CHECK SUGARS TWICE DAILY 05/12 completed Not Available Not Available Not Available Vitals None Recorded Social History Question Answer Notes LastModified by Organizat ion Details LastModified Time Tobacco Smoking Status Former Smoker MARCO A bedolla [place] - [facility] 04/30/2024 11:27:41 When Did You Quit Smoking? 16+yearssinc elastcigaret te Information not available 04/30/2024 What Is Your Relationship Status? Information not available 04/30/2024 How Many Years Have You Smoked Tobacco? 20 Information not available 04/30/2024 Sex: Unknown Functional Status Question Answer Note LastModified by Organizat ion Details LastModified Time How many times per week do you consume alcohol? Less than 1 time per week Information not available 04/30/2024 Do you use any illicit or recreational drugs? No Information not available 04/30/2024 Do you or have you ever used any other forms of tobacco or nicotine? No Information not available 04/30/2024 Do you or have you ever used e-cigarettes or vape? Never used electronic cigarettes Information not available 04/30/2024 Mental Status None recorded. Family History Nothing Reported. 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 [id number] [id number] M75.121 [id number] [facility] [address] [place] [address] 05/12/2024 11:53:41 05/12/2024 13:32:51 Nontraumatic complete rupture of rotator cuff of right shoulder [id number] 008413 M75.121 [id number] [facility] [address] [place] [address] 05/12/2024 14:24:23 06/10/2024 09:47:01 Nontraumatic complete rupture of rotator cuff of right shoulder [id number] 255807 M75.121 [id number] Martín Masterson PTA [facility] [address] [place] [address] 05/25/2024 09:20:33 05/25/2024 10:32:18 Nontraumatic complete rupture of rotator cuff of right shoulder [id number] [id number] M75.121 [id number] JOSE [facility] [address] [place] [address] 06/01/2024 15:27:35 06/01/2024 16:08:38 Nontraumatic complete rupture of rotator cuff of right shoulder [id number] 416419 M75.121 [id number] JOSE Bejarano PT [address] [place] [address] 06/03/2024 13:23:56 06/03/2024 14:19:12 Nontraumatic complete rupture of rotator cuff of right shoulder [id number] 653141 M75.121 [id number] JOSE Be[facility]ano PT [address] [place] [address] 06/08/2024 12:24:33 06/08/2024 13:15:15 Nontraumatic complete rupture of rotator cuff of right shoulder [id number] [id number] M75.121 [id number] Martín Masterson PTA [facility] [address] [place] [address] 06/10/2024 12:26:39 06/10/2024 13:49:23 Nontraumatic complete rupture of rotator cuff of right shoulder [id number] 477994 M75.121 [id number] Martín Masterson PTA [facility] [address] [place] [address] 06/15/2024 08:28:19 06/15/2024 09:37:37 Nontraumatic complete rupture of rotator cuff of right shoulder [id number] 238212 M75.121 [id number] JOSE [facility] [address] [place] [address] 06/17/2024 13:57:02 06/17/2024 14:46:00 Nontraumatic complete rupture of rotator cuff of right shoulder [id number] [id number] M75.121 [id number] CUCO Vel[facility] [address] [place] [address] 06/24/2024 11:27:16 06/24/2024 12:14:48 Nontraumatic complete rupture of rotator cuff of right shoulder [id number] M75.121 [id number] Colten Andrews DPT [facility] [address] [place] [address] 06/30/2024 08:51:52 06/30/2024 09:51:59 Nontraumatic complete rupture of rotator cuff of right shoulder [id number] 024547 M75.121 [id number] [facility] [address] [place] [address] 07/01/2024 09:27:49 07/21/2024 11:59:52 Nontraumatic complete rupture of rotator cuff of right shoulder [id number] [id number] M75.121 [id number] JOSE Bejarano - [facility] [address] [place] [address] 07/02/2024 15:21:33 07/02/2024 16:16:07 Nontraumatic complete rupture of rotator cuff of right shoulder [id number] [id number] M75.121 [id number] Colten Andrews DPT [facility] [address] [place] [address] 07/07/2024 13:25:09 07/07/2024 14:26:38 Nontraumatic complete rupture of rotator cuff of right shoulder [id number] 094180 M75.121 [id number] Colten Catjakis, DPT [facility] [address] [place] [address] 07/09/2024 09:56:37 07/09/2024 11:04:28 Nontraumatic complete rupture of rotator cuff of right shoulder 1510768524 738510 M75.121 [id number] CADY VelasquezT [facility] [address] [place] [address] 07/12/2024 10:29:50 07/12/2024 11:07:07 Nontraumatic complete rupture of rotator cuff of right shoulder [id number] M75.121 [id number] Colten Andrews DPT [facility] [address] [place] [address] 07/15/2024 11:28:03 07/15/2024 12:16:32 Nontraumatic complete rupture of rotator cuff of right shoulder [id number] 545558 M75.121 [id number] Colten Andrews, CADYT [facility] [address] [place] [address] 07/19/2024 10:25:20 07/19/2024 11:46:08 Nontraumatic complete rupture of rotator cuff of right shoulder [id number] [id number] M75.121 [id number] Martín Masterson PTA [facility] [address] [place] [address] 07/22/2024 10:27:17 07/22/2024 11:51:11 Nontraumatic complete rupture of rotator cuff of right shoulder [id number] M75.121 [id number] CADY VelasquezT [facility] [address] [place] [address] 07/26/2024 09:51:54 07/26/2024 10:44:15 Nontraumatic complete rupture of rotator cuff of right shoulder [id number] M75.121 [id number] Colten Andrews DPT [facility] [address] [place] [address] 07/29/2024 10:30:11 07/29/2024 11:11:56 Nontraumatic complete rupture of rotator cuff of right shoulder [id number] M75.121 [id number] Colten Andrews DPT [facility] [address] [place] [address] 08/31/2024 11:23:54 08/31/2024 11:59:21 Nontraumatic complete rupture of rotator cuff of right shoulder [id number] M75.121 [id number] Martín Masterson PTA [facility] [address] [place] [address] 09/03/2024 10:57:23 09/03/2024 11:46:31 Nontraumatic complete rupture of rotator cuff of right shoulder [id number] M75.121 [id number] Colten Andrews DPT [facility] [address] [place] [address] 09/08/2024 10:27:50 09/08/2024 11:03:14 Nontraumatic complete rupture of rotator cuff of right shoulder 5094220111 [id number] M75.121 [id number] Colten Andrews DPT [facility] [address] [place] [address] 09/10/2024 10:29:06 09/10/2024 11:38:43 Nontraumatic complete rupture of rotator cuff of right shoulder [id number] 257069 M75.121 [id number] Colten Andrews DPT [facility] [address] [place] [address] 09/16/2024 11:25:36 09/16/2024 12:11:42 Nontraumatic complete rupture of rotator cuff of right shoulder [id number] M75.121 [id number] MD [facility] [address] [place] [address] 09/20/2024 09:48:34 09/30/2024 10:42:21 Nontraumatic complete rupture of rotator cuff of right shoulder [id number] M75.121 [id number] Colten Andrews DPT [facility] [address] [place] [address] 09/21/2024 16:53:53 09/21/2024 17:43:16 Nontraumatic complete rupture of rotator cuff of right shoulder [id number] 799187 M75.121 [id number] Colten Andrews DPT [facility] [address] [place] [address] 09/29/2024 15:04:13 09/29/2024 16:57:54 Nontraumatic complete rupture of rotator cuff of right shoulder [id number] M75.121 [id number] Colten Andrews DPT [facility] [address] [address] [address] 10/07/2024 16:26:05 10/07/2024 17:21:45 Nontraumatic complete rupture of rotator cuff of right shoulder [id number] M75.121 [id number] Colten Andrews DPT [facility] [address] [place] [address] 10/13/2024 07:56:46 10/13/2024 08:38:47 Nontraumatic complete rupture of rotator cuff of right shoulder [id number] M75.121 [id number] Colten Andrews DPT [facility] [address] [place] [address] 10/18/2024 08:28:33 10/18/2024 09:16:16 Nontraumatic complete rupture of rotator cuff of right shoulder [id number] M75.121 [id number] Health Concerns Section Related Observation LastModified by Organization Detai ls LastModified Time None Recorded Concern Status LastModified by Organization Details LastModified Time None Recorded Advance Directives Directive None Recorded Payers Insurance Date Sequence Insurance Name Policy Number Policy Mcconnell Covered Member ID Mcconnell Member ID Guarantor Name 09/21/2024 NORIDIAN - SPECIALITY CLAIMS (MEDICARE DME REGION A) Abe Suazo Suzette [id number] Abe Suzette 10/16/2024 2 [facility] INDEMNITY PLAN (INDEMNITY) [id number] Kezia Bradford [id number] Abe Suzette 09/21/2024 1 MEDICARE B-CT: [facility] Abe Bradford [id number] Abe Bradford Notes Date Note Type Note Provider Name and Address Organization Details Recorded Time 09/21/2024 text/html Pt states the wants me to strengthen my L shoulder before deciding if we do surgery on it or not. Colten Andrews DPT [address], [place], [address], [facility] 09/21/2024 17:43:10 09/29/2024 text/html Pt states reports increased pain in the L shoulder if he is doing more with it but he has been working hard in the gym and trying to swing a golf club more at home. Colten Andrews DPT [address], [place], [address], [facility] 09/29/2024 15:56:29 10/07/2024 text/html Pt states his L shoulder has been feeling better and he has been swinging a golf club about 80% effort without much pain. Colten Andrews DPT [address], [place], [address], [facility] 10/07/2024 17:21:40 10/13/2024 text/html Pt reports the L shoulder still gets twinges of pain but overall doing much better and happy with how both shoulders are doing. He states the R shoulder feels like new. (8' early) Colten Andrews DPT [address], [place], [address], [facility] 10/13/2024 08:36:51 10/18/2024 text/html Pt states he is really happy with his progress but his L shoulder still tweaks with certain motions but doing much better. His R shoulder is doing perfect and is set up with a routine in the gym. He has been swinging golf clubs without pain. Colten Andrews, DPT [address] [facility] [address], [place], [address], [facility] 10/18/2024 09:16:12
--- OUTSIDE RECORDS SUMMARY | 2025-06-02 22:05 | XMS_ITS | Encounter Summary ---
Author Organization [facility] Address [address] [place] [address] Care Team Providers Care Biodiesel Product Manager Name Role Phone Juani Mendoza MD Primary Care Provider [phone] Encounter Details Date Type Department Care Team (Late Contact Info) Description 04/07/2025 Results Follow-Up Endocrinology - [place] [address] [place] [address] Bonny Flores PA [address] [place] [address] Social History Tobacco Use Types Packs/Day Years [...] on file Sexual Orientation Not on file documented as of this encounter Plan of Treatment Upcoming Encounters Date Type Department Care Team (Late Contact Info) Description 06/07/2025 9:15 AM EST Office Visit Pulmonology - [place] [address] [facility] [address] [place] [address] Darrel Mendoza MD [address] [place] [id number] 06/30/2025 9:30 AM EST Ancillary Procedure [facility] - [facility] [address] [facility] [address] [place] [address] 07/15/2025 9:50 AM EST Office Visit [facility] - [facility] [address] [place] [address] Brendan Molina MD [address] [place] [address] [address] [place] [address] 09/12/2025 9:30 AM EDT Office Visit Endocrinology - [place] [address] [place] [address] Bonny Flores PA [address] [place] [address] documented as of this encounter Visit Diagnoses Not on filedocumented in this encounter Care Teams Biodiesel Product Manager Relationship Specialty Start Date End Date Juani Mendoza MD [address], [place] [address] PCP - General Internal Medicine 03/04/25 documented as of this encounter
--- OUTSIDE RECORDS SUMMARY | 2025-06-02 22:05 | XMS_ITS ---
Author Name Wyatt Malloy Address Unknown Organization [facility] Care Team Providers Care Reroller Hand Name Role Phone Unavailable Primary Care Physician Unavailab le History Of Present Illness This is a 79 year old male who is an established patient who is being seen for a chief complaint ofa actinic keratosis, located on the ears, face, nose, and scalp. He comes in today for PDT. Medications Medication Generic Name RxNorm Strength Strength Unit Route Dose Dose Form Frequency Date Started Date Ended Status Indication Sig desonide desonide 735246 0.05 % Topica l cream 06/12/20 20 suspend ed Appl y very spar ingl y bid to faci al derm atit is unti l impr georgiana , then tape r freq uenc y of khalida tmen t as tole rate d. desonide desonide 664770 0.05 % Topica l small amt cream PRN 09/08/19 25 active Appl y very spar ingl y bid to faci al derm atit is unti l impr georgiana , then tape r freq uenc y of khalida tmen t as tole rate d. desonide desonide 520641 0.05 % Topica l lotio n 12/24/19 25 active Appl y BID to ears unti l impr georgiana , then PRN Efudex fluorour acil 524413 5 % Topica l cream 06/12/20 20 suspend ed Appl y one day per week am and [facility] (i.e ay am/p m and repe at week ly). Appl y once nigh tly for 7 days befo re ligh t khalida tmen t. Efudex fluorour acil 180513 5 % Topica l thin layer cream PRN 03/31/20 24 active Appl y one day per week Am & PM to [facility]. ( i.e. ay AM/P M and repe at week ly) mupirocin mupiroci n 527214 2 % Topica l ointm ent 11/10/19 21 suspend ed Appl y BID to biop sy site on left hand unti l heal ed. nystatin-tr iamcinolone 100,000-0 .1 unit/g-% Topica l small amt cream PRN active triamcinolo ne acetonide triamcin olone acetonid e 1805499 0.1 % Topica l small amt cream PRN 10/04/19 23 active Appl y BID to rash on neck , ches t and back . fluticasone propionate 50 mcg/actua tion Nasal spray spray ,susp ensio n PRN active Adult Low Dose Aspirin aspirin 81 mg Oral table t,del ayed relea se (DR/Onesimo Russ) suspend ed allopurinol 100 mg Oral 1 tabl e t QD active atorvastati n 40 mg Oral 1 table t QD active budesonide 3 mg Oral 1 capsu le,de layed ,exte nd.re lease QD active Eliquis apixaban 2.5 mg Oral 1 table t BID active folic acid 1 mg Oral 1 table t QD active isosorbide mononitrate 30 mg Oral 1 table t exten ded relea se 24 hr QD active metoprolol succinate 25 mg Oral 1 table t exten ded relea se 24 hr QD active prednisone predniso ne 261993 20 mg Oral table t 01/04/20 22 suspend ed Take 2 pill s STAT , then 2 pils QAM with alma rosa kfas t unti l impr georgiana , then 1 pill QAM x 3 days , then 1/2 pill QAM x 3 days , then stop . Amoxicillin NULL 11/19/19 14 active Atorvastati n Calcium NULL 17 active Budesonide NULL 06/26/19 17 suspend ed Cialis NULL 06/26/19 17 active ClonazePAM NULL 11/19/19 14 active Delzicol NULL 06/26/19 17 active Efudex NULL 07/13/19 10 suspend ed Erythromyci n NULL 06/26/19 17 active Fluorouraci l NULL 06/26/19 17 active Fluticasone Propionate NULL 06/26 17 suspend ed Folic Acid NULL 06/26/19 17 suspend ed Indomethaci n NULL 06/26/19 17 active [place] NULL 06/26/19 17 active Nystatin-Tr iamcinolone NULL 10/22 03/12 14 active Phentolamin e Mesylate NULL 06/26 17 active Solaraze NULL 07/23/19 08 active Sure Comfort Insulin Syringe NULL 06/26/19 17 active Viagra NULL 06/26/19 17 active Viagra NULL 11/19/19 14 suspend ed Problems Problem Code Type Status Date of Diagnosis Date of Resolution Inflamed seborrheic keratosis (disorder) 469392830(S NOMED) Diagnosis active 07/16/2018 Actinic keratosis (disorder) (S NOMED) Problem active Neoplasm of uncertain behavior of skin (disorder) 80658509(SN OMED) Diagnosis active 01/01/2018 Senile hyperkeratosis (disorder) 944387853(S NOMED) Diagnosis active 07/03/2017 Other specified health status Z78.9(ICD-1 0) Diagnosis active 12/26/2016 History of pneumonia (situation) 112514216(S NOMED) Diagnosis active 12/26/2016 Actinic keratosis (disorder) (S NOMED) Diagnosis active 12/26/2016 Actinic keratosis (disorder) (S NOMED) Diagnosis active 06/27/2016 Actinic keratosis (disorder) (S NOMED) Diagnosis active 12/21/2015 Senile hyperkeratosis (disorder) 419484402(S NOMED) Diagnosis active 06/08/2015 Actinic keratosis (disorder) (S NOMED) Diagnosis active 10/20/2014 Actinic keratosis (disorder) (S NOMED) Diagnosis active 11/18/2013 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 C44.529(ICD -10) Diagnosis active 04/29/2019 Personal history of other malignant neoplasm of skin Z85.828(ICD -10) Diagnosis active 06/24/2019 Actinic keratosis L57.0(ICD-1 0) Diagnosis active 06/24/2019 Other seborrheic keratosis L82.1(ICD-1 0) Diagnosis active 06/24/2019 Other melanin hyperpigmentation L81.4(ICD-1 0) Diagnosis active 06/24/2019 Personal history of other malignant neoplasm of skin Z85.828(ICD -10) Diagnosis active 12/23/2019 Actinic keratosis L57.0(ICD-1 0) Diagnosis active 12/23/2019 Other seborrheic keratosis L82.1(ICD-1 0) Diagnosis active 12/23/2019 Other melanin hyperpigmentation L81.4(ICD-1 0) Diagnosis active 12/23/2019 Inflamed seborrheic keratosis L82.0(ICD-1 0) Diagnosis active 12/23/2019 Actinic keratosis L57.0(ICD-1 0) Diagnosis active 03/31/2020 Personal history of other malignant neoplasm of skin Z85.828(ICD -10) Diagnosis active 06/12/2020 Actinic keratosis L57.0(ICD-1 0) Diagnosis active 06/12/2020 Other seborrheic dermatitis L21.8(ICD-1 0) Diagnosis active 06/12/2020 Other seborrheic keratosis L82.1(ICD-1 0) Diagnosis active 06/12/2020 Other melanin hyperpigmentation L81.4(ICD-1 0) Diagnosis active 06/12/2020 Xerosis cutis L85.3(ICD-1 0) Diagnosis active 06/12/2020 Actinic keratosis L57.0(ICD-1 0) Diagnosis active 06/28/2020 Actinic keratosis L57.0(ICD-1 0) Diagnosis active 07/13/2020 Other seborrheic dermatitis L21.8(ICD-1 0) Diagnosis active 07/13/2020 Xerosis cutis L85.3(ICD-1 0) Diagnosis active 07/13/2020 Inflamed seborrheic keratosis L82.0(ICD-1 0) Diagnosis active 07/13/2020 Corns and callosities L84(ICD-10) Diagnosis active 2020 Actinic keratosis (disorder) (S NOMED) Diagnosis active 11/09/2020 History of malignant neoplasm of skin (situation) 318957557(S NOMED) Diagnosis active 01/11/2021 Actinic keratosis (disorder) (S NOMED) Diagnosis active 01/11/2021 Seborrheic dermatitis (disorder) 45501972(SN OMED) Diagnosis active 01/11/2021 Seborrheic keratosis (disorder) 501771148(S NOMED) Diagnosis active 01/11/2021 Disorder of pigmentation (disorder) 234494053(S NOMED) Diagnosis active 01/11/2021 Asteatosis cutis (disorder) 36526691(SN OMED) Diagnosis active 01/11/2021 Verruca vulgaris (disorder) 42652086(SN OMED) Diagnosis active 01/11/2021 Actinic keratosis (disorder) (S NOMED) Diagnosis active 04/03/2021 Actinic keratosis (disorder) (S NOMED) Diagnosis active 05/08/2021 History of malignant neoplasm of skin (situation) 998418125(S NOMED) Diagnosis active 09/20/2021 Actinic keratosis (disorder) (S NOMED) Diagnosis active 09/20/2021 Seborrheic dermatitis (disorder) 84887969(SN OMED) Diagnosis active 09/20/2021 Seborrheic keratosis (disorder) 896997900(S NOMED) Diagnosis active 09/20/2021 Disorder of pigmentation (disorder) 586057497(S NOMED) Diagnosis active 09/20/2021 Asteatosis cutis (disorder) 70067550(SN OMED) Diagnosis active 09/20/2021 Inflammatory dermatosis (disorder) 484645664(S NOMED) Diagnosis active 09/20/2021 Allergic contact dermatitis (disorder) 816337549(S NOMED) Diagnosis active 01/03/2022 History of malignant neoplasm of skin (situation) 350581291(S NOMED) Diagnosis active 01/03/2022 Actinic keratosis (disorder) (S NOMED) Diagnosis active 01/03/2022 Seborrheic dermatitis (disorder) 48906704(SN OMED) Diagnosis active 01/03/2022 Seborrheic keratosis (disorder) 386667370(S NOMED) Diagnosis active 01/03/2022 Disorder of pigmentation (disorder) 827704976(S NOMED) Diagnosis active 01/03/2022 Asteatosis cutis (disorder) 17891331(SN OMED) Diagnosis active 01/03/2022 History of malignant neoplasm of skin (situation) 680974106(S NOMED) Diagnosis active 04/04/2022 Actinic keratosis (disorder) (S NOMED) Diagnosis active 04/04/2022 Seborrheic dermatitis (disorder) 04619424(SN OMED) Diagnosis active 04/04/2022 Seborrheic keratosis (disorder) 953190519(S NOMED) Diagnosis active 04/04/2022 Disorder of pigmentation (disorder) 738480890(S NOMED) Diagnosis active 04/04/2022 Asteatosis cutis (disorder) 85513473(SN OMED) Diagnosis active 04/04/2022 Actinic keratosis (disorder) (S NOMED) Diagnosis active 04/16/2022 Actinic keratosis (disorder) (S NOMED) Diagnosis active 06/11/2022 Basal cell carcinoma of skin (disorder) 502083814(S NOMED) Problem active History of malignant neoplasm of skin (situation) 822457691(S NOMED) Diagnosis active 10/03/2022 Actinic keratosis (disorder) (S NOMED) Diagnosis active 10/03/2022 Atopic dermatitis (disorder) 46354825(SN OMED) Diagnosis active 10/03/2022 Seborrheic dermatitis (disorder) 11863822(SN OMED) Diagnosis active 10/03/2022 Seborrheic keratosis (disorder) 376915824(S NOMED) Diagnosis active 10/03/2022 Disorder of pigmentation (disorder) 304578618(S NOMED) Diagnosis active 10/03/2022 Asteatosis cutis (disorder) 80717784(SN OMED) Diagnosis active 10/03/2022 Squamous cell carcinoma (disorder) 744940206(S NOMED) Problem active Atopic dermatitis (disorder) 93994394(SN OMED) Diagnosis active 10/09/2022 History of clinical finding in subject (situation) 072329310(S NOMED) Problem active Atopic dermatitis (disorder) 09589957(SN OMED) Diagnosis active 10/31/2022 Callosity (disorder) 821279540(S NOMED) Diagnosis active 10/31/2022 Verruca vulgaris (disorder) 68787817(SN OMED) Diagnosis active 10/31/2022 History of malignant neoplasm of skin (situation) 114920713(S NOMED) Diagnosis active 05/01/2023 Actinic keratosis (disorder) (S NOMED) Diagnosis active 05/01/2023 Atopic dermatitis (disorder) 32598598(SN OMED) Diagnosis active 05/01/2023 Seborrheic dermatitis (disorder) 98816027(SN OMED) Diagnosis active 05/01/2023 Seborrheic keratosis (disorder) 795674148(S NOMED) Diagnosis active 05/01/2023 Disorder of pigmentation (disorder) 462015615(S NOMED) Diagnosis active 05/01/2023 Asteatosis cutis (disorder) 99550889(SN OMED) Diagnosis active 05/01/2023 Inflamed seborrheic keratosis (disorder) 869943240(S NOMED) Diagnosis active 05/01/2023 Atrial fibrillation (disorder) 00911422(SN OMED) Problem active Actinic keratosis (disorder) (S NOMED) Diagnosis active 06/05/2023 Actinic keratosis (disorder) (S NOMED) Diagnosis active 07/24/2023 Actinic keratosis (disorder) (S NOMED) Diagnosis active 09/04/2023 Actinic keratosis (disorder) (S NOMED) Diagnosis active 10/02/2023 History of malignant neoplasm of skin (situation) 044000911(S NOMED) Diagnosis active 10/30/2023 Actinic keratosis (disorder) (S NOMED) Diagnosis active 10/30/2023 Atopic dermatitis (disorder) 18206313(SN OMED) Diagnosis active 10/30/2023 Seborrheic dermatitis (disorder) 80600111(SN OMED) Diagnosis active 10/30/2023 Seborrheic keratosis (disorder) 191857352(S NOMED) Diagnosis active 10/30/2023 Disorder of pigmentation (disorder) 802301933(S NOMED) Diagnosis active 10/30/2023 Asteatosis cutis (disorder) 15163683(SN OMED) Diagnosis active 10/30/2023 History of malignant neoplasm of skin (situation) 755604419(S NOMED) Diagnosis active 06/10/2024 Actinic keratosis (disorder) 715346663(S NOMED) Diagnosis active 06/10/2024 Atopic dermatitis (disorder) 24193689(SN OMED) Diagnosis active 06/10/2024 Seborrheic dermatitis (disorder) 72479390(SN OMED) Diagnosis active 06/10/2024 Seborrheic keratosis (disorder) 438259105(S NOMED) Diagnosis active 06/10/2024 Disorder of pigmentation (disorder) 343786512(S NOMED) Diagnosis active 06/10/2024 Non-thrombocytopenic purpura (disorder) 401624650(S NOMED) Diagnosis active 06/10/2024 Asteatosis cutis (disorder) 82584667(SN OMED) Diagnosis active 06/10/2024 Actinic keratosis (disorder) (S NOMED) Diagnosis active 07/06/2024 Actinic keratosis (disorder) (S NOMED) Diagnosis active 09/17/2024 History of malignant neoplasm of skin (situation) 805814265(S NOMED) Diagnosis active 12/23/2024 Actinic keratosis (disorder) (S NOMED) Diagnosis active 12/23/2024 Seborrheic dermatitis (disorder) 74440040(SN OMED) Diagnosis active 12/23/2024 Inflamed seborrheic keratosis (disorder) 661603642(S NOMED) Diagnosis active 12/23/2024 Seborrheic keratosis (disorder) 694237495(S NOMED) Diagnosis active 12/23/2024 Disorder of pigmentation (disorder) 794620521(S NOMED) Diagnosis active 12/23/2024 Non-thrombocytopenic purpura (disorder) 674561686(S NOMED) Diagnosis active 12/23/2024 Atopic dermatitis (disorder) 79747510(SN OMED) Diagnosis active 12/23/2024 Pigmented purpuric dermatosis (disorder) 1314309286( SNOMED) Diagnosis active 12/23/2024 Asteatosis cutis (disorder) 62896161(SN OMED) Diagnosis active 12/23/2024 Actinic keratosis (disorder) (S NOMED) Diagnosis active 03/29/2025 Actinic keratosis (disorder) (S NOMED) Diagnosis active 05/30/2025 Results No data Encounters Service provided at [facility], [address] [place] [address], [address], [place], [place] [id number]. Office phone number is [phone]. Office fax number is [phone]. Encounter Diagnosis Location Date / Time Type Disc harge Status Actinic Keratoses (L57.0) [facility] 05/30/2025 14:30:00 U TC NI Reason For Referral No data Procedures Procedure Date Photodynamic therapy of skin (procedure) 05/30/2025 12:00 am UTC Photodynamic therapy of skin (procedure) 03/29/2025 12:00 am UTC Cryotherapy of skin lesion with liquid n itrogen (procedure) 12/23/2024 12:00 am UTC Photodynamic therapy of skin (procedure) 09/17/2024 12:00 am UTC Photodynamic therapy of skin (procedure) 07/06/2024 12:00 am UTC Destruction of premalignant skin lesion (procedure) 10/30/2023 12:00 am UTC Photodynamic therapy of skin (procedure) 10/02/2023 12:00 am UTC Photodynamic therapy of skin (procedure) 09/04/2023 12:00 am UTC Photodynamic therapy of skin (procedure) 06/05/2023 12:00 am UTC Cryotherapy of skin lesion with liquid n itrogen (procedure) 05/01/2023 12:00 am UTC Cryotherapy of skin lesion with liquid n itrogen (procedure) 10/31/2022 12:00 am UTC Cryotherapy of skin lesion with liquid n itrogen (procedure) 10/03/2022 12:00 am UTC Cryotherapy of skin lesion with liquid n itrogen (procedure) 09/20/2021 12:00 am UTC Cryotherapy of skin lesion with liquid n itrogen (procedure) 01/11/2021 12:00 am UTC Cryotherapy of skin lesion with liquid n itrogen (procedure) 11/09/2020 12:00 am UTC Cryotherapy of skin lesion with liquid n itrogen (procedure) 07/13/2020 12:00 am UTC Cryotherapy of skin lesion with liquid n itrogen (procedure) 12/23/2019 12:00 am UTC Tumor destruction (procedure) 04/29/2019 12:00 am UTC Prostatectomy (procedure) Documentation of past medical history (p rocedure) Prostatectomy (procedure) Documentation of past medical history (p rocedure) Documentation of past medical history (p rocedure) Documentation of past medical history (p rocedure) Documentation of past medical history (p rocedure) Documentation of past medical history (p rocedure) Documentation of past medical history (p rocedure) Documentation of past medical history (p rocedure) Documentation of past medical history (p rocedure) Documentation of past medical history (p rocedure) Documentation of past medical history (p rocedure) Documentation of past medical history (p rocedure) Documentation of past medical history (p rocedure) Documentation of past medical history (p rocedure) Documentation of past medical history (p rocedure) Documentation of past medical history (p rocedure) Documentation of past medical history (p rocedure) Documentation of past medical history (p rocedure) Documentation of past medical history (p rocedure) Documentation of past medical history (p rocedure) Documentation of past medical history (p rocedure) Documentation of past medical history (p rocedure) Documentation of past medical history (p rocedure) Documentation of past medical history (p rocedure) Documentation of past medical history (p rocedure) Documentation of past medical history (p rocedure) Documentation of past medical history (p rocedure) Documentation of past medical history (p rocedure) Documentation of past medical history (p rocedure) Documentation of past medical history (p rocedure) Documentation of past medical history (p rocedure) Documentation of past medica l history (procedure) Rotary cuff repair on his right shoulder 04/2024, PacemakerBilateral hernia repair 2012 Prostatectomy (procedure) Review Of Systems No Data Assessment 1.Actinic KeratosesPDT: Blue: face; face; face; scalp; scalp; Incubation Start Time - 9:30; Number of Kerasticks/Tubes Billed For - 1; Incubation End Time - 10:30; Who Performed the PDT (Staff) - Harriett Novak;; Illumination Time - 4:10; Incubation Time - 60 Minutes; Treatment Number - 2. Plan of Care Code Detail Instructions 887806 desonide 0.05 % lotion Apply BID to ears until improved, then PRN 951830 desonide 0.05 % topical cream Ap ply very sparingly bid to facial dermatitis until improved, then taper frequency of treatment as tolerated. 213579 Efudex 5 % topical cream Apply o ne day per week Am & PM to sun damaged areas. ( i.e. Friday AM/PM and repeat weekly) 9753650 triamcinolone aceton robert 0.1 % topical cream Apply twice daily to rash of trunk and extremities for 2 weeks on, then take 1 week off. Repeat as needed. Avoid face or body folds. 7817112 triamcinolone aceton robert 0.1 % topical cream Apply BID to rash on neck, chest and back. 2623102 triamcinolone aceton robert 0.1 % topical cream Apply BID to rash on neck, chest and back. 332022 prednisone 20 mg tablet Take 2 p ills STAT, then 2 pils QAM with breakfast until improved, then 1 pill QAM x 3 days, then 1/2 pill QAM x 3 days, then stop. 206105 desonide 0.05 % topical cream Ap ply very sparingly bid to facial dermatitis until improved, then taper frequency of treatment as tolerated. 434623 Efudex 5 % topical cream Apply o ne day per week am and pm to sun damaged areas (i.e Friday am/pm and repeat weekly). Apply once nightly for 7 days before light treatment. 753559 desonide 0.05 % topical cream Ap ply very sparingly bid to facial dermatitis until improved, then taper frequency of treatment as tolerated. 564802 mupirocin 2 % topical ointment A pply BID to biopsy site on left hand until healed. 495139 desonide 0.05 % topical cream Ap ply very sparingly bid to facial dermatitis until improved, then taper frequency of treatment as tolerated. 766514 Efudex 5 % topical cream Apply o ne day per week am and pm to sun damaged areas (i.e Friday am/pm and repeat weekly). Apply once nightly for 7 days before light treatment. 141976 desonide 0.05 % topical cream Ap ply very sparingly bid to facial dermatitis until improved, then taper frequency of treatment as tolerated. Instructions No Data Social History Code Activity Start Date End Date 5565044 (SNOMED) Former smoker Sex Male Sexual orientation Unspecified Gender identity Unspecified Vital Signs No data Insurances Coverage Status Coverage Type Relationship to Subscriber Member Identifier Subscriber Identifier Group Identifier Payer Identifier Active 1 Self [id number] Inactive 2 Spouse [id number] Active Spouse [id number] CANELO
--- OUTSIDE RECORDS SUMMARY | 2025-06-02 22:05 | XMS_ITS | Encounter Summary ---
Author Organization [facility] Address [address] [place] [address] Phone Care Team Providers Care Beef Pluck Trimmer Name Role Phone Milly Barron MD Primary Care Provider [phone] Mark Bain MD, PhD Unavailable Reason for Visit * Reason Onset Date Comments Medication Problem 10/21/2018 pharmacy is r equesting a call back for patients BIMIX medication, needs clarification on which strenth to fill as there are 2 different strengths written on script. please call to clarify Encounter Details Date Type Department Care Team (Late st Contact Info) Description 10/21/2018 Telephone [facility] Urology [address] [facility] [address] [email or web address] Medication Problem (pharmacy is requesting a call back for patients BIMIX medication, needs clarification on which strenth to fill as there are 2 different strengths written on script. please call to clarify ) Social History Tobacco Use Types Packs/Day Years Used Date Smoking Tobacco: Former Sex and Gender Information Value Date Recorded Sex Assigned at Not on file Legal Sex Male 11:24 AM EDT Gender Identity Not on file Sexual Orientation Not on file documented as of this encounter Plan of Treatment Not on file documented as of this encounter Visit Diagnoses Not on filedocumented in this encounter Care Teams Beef Pluck Trimmer Relationship Specialty Start Date End Date Milly Barron MD [address] [place] [id number] PCP - General 10/27/14 Mark Bain MD, PhD [address] [place] [address] [email or web address] LMR Provider 11/05/14 06/30/21 documented as of this encounter Additional Source Comments The information contained in this document represents components of the legal health record. It is not the complete legal health record.[facility]
--- OUTSIDE RECORDS SUMMARY | 2025-06-02 22:05 | XMS_ITS | Encounter Summary ---
Author Organization [facility] Address [address] [place] [address] Care Team Providers Care Registered Representative Name Role Phone Juani Mendoza MD Primary Care Provider [phone] Encounter Details Date Type Department Care Team (Late Contact Info) Description 04/21/2025 Results Follow-Up [facility] [address] [facility] [address] [place] [address] Carrie Caldwell NP [address] [place] [address] [facility] [address] [place] [address] Social History Tobacco Use Types Packs/Day Years [...] 9:15 AM EST Office Visit Pulmonology - [place] [address] [facility] [address] [place] [phone] Darrel Mendoza MD [address] [place] [phone] 06/30/2025 9:30 AM EST Ancillary Procedure [facility] [address] [facility] [address] [place] [address] 07/15/2025 9:50 AM EST Office Visit [facility] [address] [place] [address] Brendan Molina MD [address] [place] [address] [address] [place] [address] 09/12/2025 9:30 AM EDT Office Visit Endocrinology - [place] [address] [place] [address] Bonny Flores PA [address] [place] [address] documented as of this encounter Visit Diagnoses Not on filedocumented in this encounter Care Teams Registered Representative Relationship Specialty Start Date End Date Juani Mendoza MD [address] [place] [address] PCP - General Internal Medicine 03/04/25 documented as of this encounter
--- OUTSIDE RECORDS SUMMARY | 2025-06-02 22:05 | XMS_ITS | Clinical Summary ---
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 Medications ASPIRIN ORAL ASPIRIN (ACETYLSALICYLIC ACID (ASPIRIN)) 325 MG TABLET; Dose: 325 MG; Form: Take 1 TABLET; Route: PO; Frequency: QD; Directions: Not available; Details: Dispense: Tablet(s); Status: Active; Source: EDUARDO CORRAL; Date: 10/13/2013 Active LORazepam (ATIVAN) 0.5 MG tablet Reported on 09/10/2016 Active atorvastatin (LIPITOR) 20 MG tablet ATORVASTATIN 20 MG TABLET; Dose: 20 MG; Form: Take 1 TABLET; Route: PO; Frequency: QHS; Directions: Not available; Details: Dispense: Tablet(s); Status: Active; Source: EDUARDO CORRAL; Date: 10/13/2013 Active CALCIUM CITRATE/VITAMIN D3 (CALCIUM CITRATE + D ORAL) Reported on 09/10/2016 Active tamsulosin (FLOMAX) 0.4 mg Cp24 FLOMAX (TAMSULOSIN) 0.4MG CAP.SR 24H; Dose: 0.4 MG; Form: Take 1 CAP.SR 24H; Route: PO; Frequency: QD; Directions: Not available; Details: Dispense: CAP.SR; Status: Active; Source: EDUIN ADAIR M.D.,PH.D.; Date: 10/13/2013 Active folic acid (FOLVITE) 1 MG tablet FOLIC ACID 1 MG TABLET; Dose: 1 MG; Form: Take 1 TABLET; Route: PO; Frequency: QD; Directions: Not available; Details: Dispense: Tablet(s); Status: Active; Source: EDUARDO CORRAL; Date: 10/13/2013 Active glucosamine sulfate 500 mg Tab GLUCOSAMINE 500 MG TABLET; Dose: Variable: See CMLV for Details; Form: Take 1 TABLET; Route: PO; Frequency: Not available; Directions: Not available; Details: Dispense: Tablet(s); Status: Active; Source: EDUARDO CORRAL; Date: 10/13/2013 Active multivitamin per tablet MULTIVITAMIN THERAPEUTIC (THERAPEUTIC MULTIVITAMINS) LIQUID; Dose: 1 TAB; Form: Not available; Route: PO; Frequency: QD; Directions: Not available; Details: Not available; Status: Active; Source: EDUARDO CORRAL; Date: 10/13/2013 Active OMEGA-3S/DHA/EPA /FISH OIL (OMEGA 3 ORAL) Reported on 09/10/2016 Active alprostadil (MUSE) 500 mcg Supp 1 suppository (500 mcg total) by Transurethral route as needed for erectile dysfunction. use no more than 3 times per week 10 suppository 3 Active Additional Information Patient not taking.Reported on 09/10/2016 tadalafil (CIALIS) 20 MG tablet Take 1 tablet (20 mg total) by mouth daily as needed. 10 tablet 5 Active Medication-Free Text Bimix; Dose: Not available; Form: Take 0.3 cc ; Route: INTRACAVERNOSAL; Frequency: Up to 4 times weekly.; Directions: Papverine 30mg/Phentolamine 0.5 mg/mLInject 15 minutes prior to intercourse. May titrate up as tolerated not to exceed 1.0cc. Please dispense 10cc vial, 1cc syringes, and 29G 1/2 needles.; Details: Dispense: 1 Vial(s); Status: Active; Source: MACKENZIE MAJORPPatrick; Date: 03/15/2014 014 Active sildenafil (VIAGRA) 100 mg tabletIndication s:Erectile dysfunction following radical prostatectomy Take 1 tablet (100 mg total) by mouth daily as needed for erectile dysfunction. 40 tablet 017 Active fluticasone propionate (FLONASE) 50 mcg/actuation nasal spray USE 1-2 SPRAYS IN EACH NOSTRIL EVERY DAY 017 Active budesonide (ENTOCORT EC) 3 mg 24 hr capsule TAKE 3 CAPSULES BY MOUTH EVERY MORNING 017 Active Medication-Free Text Papaverine 30 mg/Phentolamine 1 mg/ml. Inject 15 minutes prior to intercourse. Initial dose of 0.3 ML. May increase by 0.1 ML per injection until desired effect achieved, not to exceed 1.0 ML. Seek emergency care for erection lasting longer than 4 hours. 10 mL 11 020 Active papaverine-phent olamine (BIMIX 30/1) 30 mg- 1 mg/mL injection 0.2 mL by Intracavernosal route 3 (three) times a week. Inject 0.2mL as directed. May increase by 0.1ml per injection until desired effect achieved. Inject up to 3x per week with 24 hours between injections. 10 mL 020 Active insulin syringe-needle U-100 0.5 mL 29 gauge x 1/2 Syrg 1 each by Miscellaneous route as needed. Use to inject Bimix medication intramuscularly, as needed 10 each 020 Active Active Problems Problem Noted Date Diagnosed Date Malignant tumor of prostate 10/13/2013 Overview (08/12/2014): Prostate Cancer Arteriosclerotic heart disease 10/13/2013 Overview (08/12/2014): Arteriosclerotic heart disease Gastritis 10/13/2013 Overview (08/12/2014): Gastritis S/P hernia repair 10/13/2013 Overview (08/12/2014): S/P Hernia repair; bilateral Uncoded Cyst scrotum 10/13/2013 Overview (08/12/2014): Cyst scrotum Pneumonia 10/13/2013 Overview (08/12/2014): Pneumonia; 2005 Urinary tract infection 10/13/2013 Overview (08/12/2014): Urinary tract infection; post op infection and urinary obstuction was given Proscar for a short period of time Immunizations Immunization Administration Dates Next Due Pneumococcal polysaccharide PPSV23 11/26/2013 Family History Medical History Relation Comments Heart attack Brother 2 Myocardial infar ction Cirrhosis Father Cirrhosis of [place] Uncoded Family History Father Metastati c cancer; spine lesion metas from liver cancer Carotid stenosis Mother Carotid artery stenosis Hypertension Mother Hypertensive dis order Relation Status Comments Brother 1 Cause of : Myocardial infarction Brother 2 Father Mother Social History Tobacco Use Types Packs/Day Years Used Date Smoking Tobacco: Former Education Answer Date Recorded Are you interested in more education? Not on miri e 10/18/2022 Are you concerned about learning? Not on file 10/18/2022 No 10/18/2022 No 10/18/2022 Digital Access Answer Date Recorded No 11/18/2022 No 11/18/2022 No 11/18/2022 Reliable internet access at home? Not on file 11/18/2022 Device with a working camera? Not on file Sex and Gender Information Value Date Recorded Sex Assigned at Not on file Legal Sex Male 11:24 AM EDT Gender Identity Not on file Sexual Orientation Not on file Last Filed Vital Signs Vital Sign Reading Time Taken Comments Blood Pressure 153/65 10/13/2018 9:58 AM EDT Pulse 41 10/13/2018 9:58 AM EDT Temperature 36.8 C (98.3 F) 10/13/2013 1:26 PM EDT Respiratory Rate 18 10/13/2013 1:26 PM EDT Oxygen Saturation - - Inhaled Oxygen Concentration - - Weight 86.2 kg (190 lb) 10/13/2018 9:58 AM EDT Height 177.8 cm (5' 10 ) 10/13/2018 9:58 AM EDT Body Mass Index 27.26 10/13/2018 9:58 AM EDT Plan of Treatment Health Maintenance Due Date Last Done Comments DEPRESSION SCREENING 1959 SMOKING Hx and SMOKELESS TOBACCO SCREENING 11/28/1960 HEPATITIS C SCREENING 11/28/1965 LIPID PANEL 11/28/1965 ZOSTER VACCINES (1 of 2) 12/17/2011 10/22/2011 PNEUMOCOCCAL VACCINES (50+ years) (2 of 2 - PCV) 11/26/2014 11/26/2013 Adult Td,Tdap Booster 11/02/2017 11/03/2007 RSV VACCINE (1 - 1-dose 75+ series) 11/28/2022 INFLUENZA VACCINE (#1) 2025 0, 03/01/2019, 03/13/2018, Additional history exists COVID-19 VACCINE ( - 2024- season) 2025 09/11/2020, 08/15/2020 HEPATITIS A VACCINES Aged Out No long er eligible based on patient's age to complete this topic HIB VACCINES Aged Out No longer eligi ble based on patient's age to complete this topic MENINGOCOCCAL VACCINES (ACWY) Aged Out No longer eligible based on patient's age to complete this topic MENINGOCOCCAL VACCINES (B) Aged Out N o longer eligible based on patient's age to complete this topic Medical Devices Not on file Insurance MEDICARE PART A & B [facility] TOTAL CHOICE INDEMNITY [address] MEDICARE PART A & B [facility] [place] [address] MEDICARE PART A & B [facility] TOTAL CHO[employer] INDEMNITY MEDICARE PART A & B Member Subscriber Plan / Payer ( fective 2012-Present) Name:Abe Bradford Member ID:[id number] Relation to Subscriber:Self Name:ABE BRADFORD Subscriber ID:[id number] Payer ID:[id number] Group ID:Not on file Type:Medicare Address: [facility] 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 It is not the complete legal health record.[facility]
== END 2025-06-02 13:23 | disposition home or self-care (01) ==
LOC: HO.HKASLDS 13:22
PROVIDERS: PCP Internal Medicine; Visit Provider Internal Medicine Rheumatology
DX: M1A.0720 Idiopathic chronic gout, left ankle and foot, without tophus (tophi) (principal); Z51.81 Encounter for therapeutic drug level monitoring; Z79.899 Other long term (current) drug therapy
CPT/HCPCS: 36415; 82565; 84450; 84460; 84550; 99212

== ENCOUNTER 2025-06-02 13:22 | Outpatient (AMB) | payer MEDICARE, OTHER, SELFPAY ==
--- NOTE | 2025-06-02 13:25 | A.OFFVIS_ITS ---
Vital Signs 06/02/25 13:28 Height 5 ft 11 in Weight 182 lb 5.156 oz BMI 25.4 BP 122/68 Blood Pressure Location Rt brachial Position Sitting Pulse 61 Pulse Source Pulse Oximeter Pulse Oximetry (%) 96 Oxygen Delivery Method Room Air Intake Visit Reasons: Gout Intake Note: Patient presents today for a gout follow up. Accompanied by: Self / Same As Patient Allergies No Known Allergies Allergy (Verified 06/02/25 13:25) HPI HPI Gout: Details: He is doing well. No recent gout episode. He had right shoulder replacement recently with full range of motion. He is on allopurinol 400 mg daily. [facility] Medical History (Updated 06/02/25 @ 14:18 by Marii Mohamud CMA) Pacemaker Single vessel coronary artery disease History of prostate cancer Sick sinus syndrome Right bundle branch block Restless leg syndrome Obstructive sleep apnea Hypertension Hyperlipidemia Coronary artery disease Controlled type 2 diabetes mellitus Collagenous colitis Allergic rhinitis Benign prostatic hyperplasia Carpal tunnel syndrome on right Tenosynovitis Rotator cuff tendonitis Gout, chronic, without tophus Surgical History (Updated 06/02/25 @ 14:18 by Marii Mohamud CMA) Status post right rotator cuff repair History of bilateral inguinal herniorrhaphies Hx of prostatectomy Family History (Updated 06/02/25 @ 14:20 by Marii Mohamud CMA) Father Gout Cancer Heart disease Mother Heart disease Osteoarthritis Physical Exam Exam Exam: General: Comfortable Skin: No lesions seen MSK: Pes planus bilateral present. No tender joints. No tophus. No synov itis. Normal range of motion of upper extremities and lower extremities. 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 Left 1st MTP erosion. On allopurinol 400 mg daily. He has not had a gout flare this year. Goal uric acid level is less than 6. Plan Lab for disease and drug monitoring ordered. I will target treatment for goal uric acid level less than 6. We discussed considering decreasing allopurinol dose to 300 mg daily if uric acid level is at goal. Return to clinic in 1 year sooner if needed Orders: Orders Uric Acid Today M10.9 - Gout, unspecified Alanine Aminotransferase Today M10.9 - Gout, unspecified Aspartate Amino Transferase Today M10.9 - Gout, unspecified Creatinine Today M10.9 - Gout, unspecified Medications: New methylprednisolone (Medrol (Ricki)) 4 mg PO PER PKG DIR 21 ea 1RF allopurinol 300 mg PO DAILY 90 tabs 4RF 90 days Coding Level of Care Code Est Pt Level 3 (28738) Add On Problem Visit Only Diagnoses Chronic idiopathic gout involving toe without tophus, unspecified laterality M1A.0790 Chronicity: chronic Gout site: toe Presence of tophus: without tophus Gout etiology: idiopathic Laterality: unspecified laterality
[2025-06-02 13:28] VITALS: BP 122/68; PULSE 61; O2SAT 96; BMI 25.4
== END 2025-06-02 14:23 | disposition home or self-care (01) ==
LOC: HO.RHES 13:23
PROVIDERS: PCP Internal Medicine; Visit Provider Internal Medicine Rheumatology
DX: M1A.0790 Idiopathic chronic gout, unspecified ankle and foot, without tophus (tophi) (principal)
CPT/HCPCS: 99213; G2211